=== PATIENT | male | born 1985 | race Asian ===

== ENCOUNTER 2016-10-18 13:29 | Emergency (ER) | payer MEDICAID ==
[~2016-10-18] VITALS: Ht 165.1 cm; Wt 49.9 kg
[2016-10-18 14:24] VITALS: BP 115/87
--- NOTE | 2016-10-18 14:47 | NUR ---
PATIENT AMBULATED TO BED 3 AT THIS TIME.
--- NOTE | 2016-10-18 14:51 | NUR ---
PT PRESENTS TO ER W/C/O RIGHT EAR PAIN X1 WEEK. DENIES N/V/D; SKIN IS PINK/WARM/DRY; AAOX4 WITH EVEN AND STEADY GAIT; LUNGS CLEAR BL; HR EVEN AND REGULAR; PT DENIES ANY FEVER, CP, SOB, OR COUGH AT THIS TIME; PATIENT STATES PAIN OF 4/10 AT THIS TIME; VSS; PATIENT POSITIONED FOR COMFORT; HOB ELEVATED; BEDRAILS UP X2; BED DOWN. ER MD MADE AWARE OF PT STATUS.
[2016-10-18 15:09] VITALS: BP 115/87
--- NOTE | 2016-10-18 15:09 | NUR ---
Patient discharged with v/s stable. Written and verbal after care instructions given and explained. Patient alert, oriented and verbalized understanding of instructions. Ambulatory with steady gait. All questions addressed prior to discharge. ID band removed. Patient advised to follow up with PMD. Rx of CORTISPORIN OTIC SUSPENSION given. Patient educated on indication of medication including possible reaction and side effects. Opportunity to ask questions provided and answered.
== END 2016-10-18 15:09 | disposition home or self-care (01) ==
LOC: MED 13:29
DX: H60.91 Unspecified otitis externa, right ear (principal)

== ENCOUNTER 2017-01-12 14:23 | Emergency (ER) | payer MEDICAID ==
[~2017-01-12] VITALS: Ht 165.1 cm; Wt 49.9 kg
[2017-01-12 14:48] VITALS: BP 116/87
[2017-01-12 15:16] VITALS: BP 116/87
== END 2017-01-12 15:18 | disposition home or self-care (01) ==
LOC: MED 14:23
DX: H66.91 Otitis media, unspecified, right ear (principal)
CPT/HCPCS: 99283

== ENCOUNTER 2017-02-14 17:19 | Emergency (ER) | payer MEDICAID ==
[~2017-02-14] VITALS: Ht 165.1 cm; Wt 49.9 kg
[2017-02-14 17:56] VITALS: BP 147/97
--- NOTE | 2017-02-14 19:37 | NUR ---
Patient to OF.
--- NOTE | 2017-02-14 19:43 | NUR ---
Dr. Velasquez evaluating patient at bedside.
[2017-02-14 20:02] VITALS: BP 132/88
--- NOTE | 2017-02-14 20:04 | NUR ---
Patient discharged with v/s stable. Written and verbal after care instructions given and explained. Patient alert, oriented and verbalized understanding of instructions. Ambulatory with steady gait. All questions addressed prior to discharge. ID band removed. Patient advised to follow up with PMD. Rx of predinsone 20mg, benadryl 25mg given. Patient educated on indication of medication including possible reaction and side effects. Opportunity to ask questions provided and answered.
== END 2017-02-14 20:04 | disposition home or self-care (01) ==
LOC: MED 17:19
DX: R21 Rash and other nonspecific skin eruption (principal); L29.9 Pruritus, unspecified
CPT/HCPCS: 99283

== ENCOUNTER 2017-03-05 02:26 | Emergency (ER) | payer MEDICAID ==
[~2017-03-05] VITALS: Ht 165.1 cm; Wt 50.5 kg
[2017-03-05 02:34] VITALS: BP 136/78
[2017-03-05 02:36] VITALS: BP 136/78
[2017-03-05] MEDS ORDERED: IBUP-2213 PO (02:36)
--- NOTE | 2017-03-05 02:41 | NUR ---
PATIENT PRESENTS TO ED WITH RASH TO BODY OFF AND ON X 3WEEKS WAS SEEN 2 WEEKS AT [facility] ER FOR SAME S/S PT DENIES N/V/D; AAOX4 WITH EVEN AND STEADY GAIT; LUNGS CLEAR BL; HR EVEN AND REGULAR; PT DENIES ANY FEVER, CP, SOB, OR COUGH AT THIS TIME; PATIENT STATES PAIN OF 0/10 AT THIS TIME; VSS; PATIENT POSITIONED FOR COMFORT; HOB ELEVATED; BEDRAILS UP X2; BED DOWN. ER MD MADE AWARE OF PT STATUS.
--- NOTE | 2017-03-05 02:55 | NUR ---
Patient discharged with v/s stable. Written and verbal after care instructions given and explained. Patient verbalized understanding. Ambulatory with steady gait. All questions addressed prior to discharge. Advised to follow up with PMD. DISCHARGED BY DR MCDANIELS.
== END 2017-03-05 02:55 | disposition home or self-care (01) ==
LOC: MED 02:26
DX: L42 Pityriasis rosea (principal); Z79.899 Other long term (current) drug therapy
CPT/HCPCS: 99281